=== PATIENT | male | born 1945 | race Caucasian/White ===

== ENCOUNTER → 2017-10-23 | Outpatient (CLI) | payer MEDICARE, OTHER ==
[~2017-10-23] MED LIST: IOHEXOL 240 MG/ML 50ML VIAL. ONE; IOHEXOL 300 MG/ML 75 ML VIAL. IV ONE
[2017-10-23 11:51] LABS: CREATININE 1.1 mg/dL (0.7-1.3); GFR 65.8
--- NOTE | 2017-10-23 12:55 | RAD ---
EXAM: Abdomen and pelvis CT with intravenous contrast. HISTORY: Anorexia. Epigastric pain. TECHNIQUE: Computed tomographic images of the abdomen and pelvis were obtained following the administration of 75 cc Omnipaque 300 intravenous contrast. Multiplanar reformatting was performed. *One or more of the following individualized dose reduction techniques were utilized for this examination: 1. Automated exposure control. 2. Adjustment of the mA and/or kV according to patient size. 3. Use of iterative reconstruction technique. COMPARISON: None. FINDINGS: Evaluation of the lower thorax is unremarkable. There are several tiny hypodense lesions within the liver, the majority of which are within the left hepatic lobe at the largest of which measures 5 mm. The gallbladder is surgically absent. The pancreas, spleen and right adrenal gland are unremarkable. There is slight nodularity involving the left adrenal gland, without a discrete lesion. The kidneys are unremarkable. The appendix is normal in appearance. There is distal colonic diverticulosis. There is no evidence of diverticulitis. There is no evidence of bowel obstruction. There is mild partially calcified atherosclerotic plaque within the aorta. There is no aortic aneurysm. No pathologically enlarged lymph node is seen. There is no suspicious osseous lesion. There is degenerative change throughout the thoracolumbar spine. There is kyphosis at the thoracolumbar junction, thoracolumbar scoliosis and multilevel listhesis. This results in foraminal and central canal stenosis at multiple levels. IMPRESSION: 1. Distal colonic diverticulosis without evidence of diverticulitis. 2. Multiple small hypodense lesions within the liver, too small to characterize. In the absence of known malignancy, these are likely cysts. 3. No acute abdominal or pelvic finding. Electronically signed by: Bonny Marquis MD (10/23/2017 12:53 PM) [id number]
== END | disposition home or self-care (01) ==
LOC: CT 11:11
PROVIDERS: ATTEND Physician Assistant
DX: K57.30 Diverticulosis of large intestine without perforation or abscess without bleeding (principal); M41.85 Other forms of scoliosis, thoracolumbar region
CPT/HCPCS: 36415; 74177; 82565; 84520; Q9966; Q9967